=== PATIENT | female | born 1990 | race Caucasian/White ===

== ENCOUNTER 2020-06-25 14:19 | Inpatient (IN) | payer OTHER ==
[~2020-06-25 14:19] MED LIST: KEFLEX250 MG PO
[2020-06-25 14:55] LABS: HCT 35.1 % (37.0-47.0); HGB 11.2 g/dl (12.5-16.0); MCH 27.8 pg (25.0-31.0); MCHC 31.9 g/dL (32.0-36.0); MCV 87.1 fL (78.0-100.0); MPV 10.9 fL (6.0-9.5); RBC 4.03 M/uL (4.20-5.40); RDW 12.6 % (11.5-14.0); WBC 13.7 K/uL (4.0-10.5)
[2020-06-25 15:25] LABS: ALBUMIN 2.6 g/dL (3.4-5.0); BILIRUBIN - TOTAL 0.2 mg/dL (0.2-1.0); BUN/CREAT RATIO (CALC) 15.4 RATIO; CREATININE 0.52 mg/dL (0.51-0.95); GLOBULIN (CALCULATION) 3.8 g/dL; POTASSIUM 4.2 mmol/L (3.5-5.1); TOTAL PROTEIN 6.4 g/dL (6.4-8.2); URIC ACID 4.4 mg/dL (2.6-6.2)
[2020-06-25 15:38] LABS: URINE CREATININE 45.43 mg/dL (29.00-226.00); URINE TOTAL PROTEIN-RANDOM <6.0 mg/dL (<11.9)
[2020-06-27 05:42] LABS: HGB 9.5 g/dl (12.5-16.0); MCHC 31.7 g/dL (32.0-36.0); MCV 88.5 fL (78.0-100.0); MPV 10.9 fL (6.0-9.5); RBC 3.39 M/uL (4.20-5.40); RDW 12.6 % (11.5-14.0); WBC 16.8 K/uL (4.0-10.5)
== END 2020-06-28 11:12 | disposition home or self-care (01) | DRG 806 ==
LOC: FOD 14:19 → FOB 14:31 → FOD 14:59 → FOB 22:22
PROVIDERS: ADMIT Obstetrics & Gynecology
PROC: 10E0XZZ Delivery of Products of Conception, External Approach (ICD-10-PCS; principal; 2020-06-25)
PROC: 0KQM0ZZ Repair Perineum Muscle, Open Approach (ICD-10-PCS; 2020-06-25)
PROC: 10907ZC Drainage of Amniotic Fluid, Therapeutic from Products of Conception, Via Natural or Artificial Opening (ICD-10-PCS; 2020-06-25)
PROC: 3E0234Z Introduction of Serum, Toxoid and Vaccine into Muscle, Percutaneous Approach (ICD-10-PCS; 2020-06-25)
DX: O13.3 Gestational [pregnancy-induced] hypertension without significant proteinuria, third trimester (principal); N13.30 Unspecified hydronephrosis; Z37.0 Single live birth; D62 Acute posthemorrhagic anemia; Z3A.37 37 weeks gestation of pregnancy; O62.2 Other uterine inertia; O99.891 Other specified diseases and conditions complicating pregnancy; K58.2 Mixed irritable bowel syndrome; O99.613 Diseases of the digestive system complicating pregnancy, third trimester; O90.81 Anemia of the puerperium; O70.1 Second degree perineal laceration during delivery
CPT/HCPCS: 36415; 80053; 82570; 83615; 84156; 84550; 85461; 86850; 86900; 86901; J2405; J2790; J7120; U0002

== ENCOUNTER 2020-08-22 12:00 | Emergency (ER) | payer OTHER ==
[2020-08-22 13:27] LABS: BILIRUBIN NEGATIVE (NEGATIVE); BLOOD NEGATIVE Ery/uL (NEGATIVE); CLARITY CLEAR (CLEAR); COLOR YELLOW (YELLOW); GLUCOSE (U) NORMAL (NORMAL); LEUKOCYTES TRACE Leu/uL (NEGATIVE); NITRITE NEGATIVE (NEGATIVE); PROTEIN NEGATIVE (NEGATIVE); UROBILINOGEN 0.2 mg/dL (0.2-1.0)
[2020-08-22 13:42] LABS: BACTERIA TRACE
[2020-08-22] MEDS ORDERED: BACLOFEN 10MG T10 MG PO (14:17)
[2020-08-22] MEDS ORDERED: NAPROXEN500 MG PO (14:17)
== END 2020-08-22 14:55 | disposition home or self-care (01) ==
LOC: FER 12:00
PROVIDERS: Nurse Practitioner Family
DX: S39.012A Strain of muscle, fascia and tendon of lower back, initial encounter (principal); X58.XXXA Exposure to other specified factors, initial encounter
CPT/HCPCS: 72100; 81001; 87088; 96372; J1100; J1885

== ENCOUNTER 2020-08-24 10:33 | Emergency (ER) | payer OTHER ==
[~2020-08-24 10:33] MED LIST changes: +BACLOFEN 10MG T10 MG PO; +NAPROXEN500 MG PO
== END 2020-08-24 11:18 | disposition home or self-care (01) ==
LOC: FER 10:33
DX: T81.31XA Disruption of external operation (surgical) wound, not elsewhere classified, initial encounter (principal); Y83.8 Other surgical procedures as the cause of abnormal reaction of the patient, or of later complication, without mention of misadventure at the time of the procedure
CPT/HCPCS: 99283

== ENCOUNTER 2020-09-02 20:55 | Emergency (ER) | payer OTHER ==
[2020-09-02 22:15] LABS: BASOPHIL 0.3 % (0-2); EOSINOPHIL 0.8 % (0-5); HCT 36.9 % (37.0-47.0); HGB 12.1 g/dl (12.5-16.0); MCH 27.9 pg (25.0-31.0); MCHC 32.8 g/dL (32.0-36.0); MCV 85.2 fL (78.0-100.0); MONOCYTE 7.6 % (0-12); MPV 10.7 fL (6.0-9.5); NRBC 0; PLT 229 K/uL (150-400); RBC 4.33 M/uL (4.20-5.40); RDW 12.5 % (11.5-14.0); WBC 9.3 K/uL (4.0-10.5)
[2020-09-02 22:27] LABS: BILIRUBIN NEGATIVE (NEGATIVE); BLOOD NEGATIVE Ery/uL (NEGATIVE); CLARITY CLEAR (CLEAR); COLOR YELLOW (YELLOW); GLUCOSE (U) NORMAL (NORMAL); LEUKOCYTES NEGATIVE Leu/uL (NEGATIVE); NITRITE NEGATIVE (NEGATIVE); PROTEIN NEGATIVE (NEGATIVE); UROBILINOGEN 0.2 mg/dL (0.2-1.0)
[2020-09-02 22:33] LABS: ALBUMIN 3.6 g/dL (3.4-5.0); BILIRUBIN - TOTAL 0.2 mg/dL (0.2-1.0); BUN/CREAT RATIO (CALC) 19.7 RATIO; CREATININE 0.71 mg/dL (0.51-0.95); POTASSIUM 4.2 mmol/L (3.5-5.1); TOTAL PROTEIN 6.6 g/dL (6.4-8.2)
[2020-09-02 22:54] LABS: IRON % SATURATION 6.6 %SAT (20-50)
[2020-09-02] MEDS ORDERED: FEOSOL325 MG PO (23:00)
== END 2020-09-02 23:20 | disposition home or self-care (01) ==
LOC: FER 20:55
PROVIDERS: Emergency Medicine; Nurse Practitioner Family
DX: E61.1 Iron deficiency (principal); R06.02 Shortness of breath; M79.10 Myalgia, unspecified site; I10 Essential (primary) hypertension
CPT/HCPCS: 36415; 71045; 80053; 81003; 83540; 83550; 83880; 84484; 85025; 85379; 93005

== ENCOUNTER 2021-07-19 19:30 | Emergency (ER) | payer OTHER ==
[~2021-07-19 19:30] MED LIST changes: +FEOSOL325 MG PO
[2021-07-19 19:58] LABS: BASOPHIL 0.3 % (0-2); EOSINOPHIL 0.3 % (0-5); HCT 39.7 % (37.0-47.0); HGB 13.4 g/dl (12.5-16.0); LYMPHOCYTE 29.4 % (15-48); MCH 29.5 pg (25.0-31.0); MCHC 33.8 g/dL (32.0-36.0); MCV 87.4 fL (78.0-100.0); MONOCYTE 6.3 % (0-12); NEUTROPHIL 63.4 % (41-80); NRBC 0; PLT 225 K/uL (150-400); RBC 4.54 M/uL (4.20-5.40); RDW 11.8 % (11.5-14.0)
[2021-07-19 20:08] LABS: INR 1.19 (0.9-1.2); PROTHROMBIN TIME 14.5 SECONDS (11.8-13.4); PTT 31.4 SECONDS (24.4-34.7)
[2021-07-19 20:18] LABS: ALBUMIN 4.4 g/dL (3.4-5.0); ALKALINE PHOSHATASE 53 U/L (46-116); ALT 17 U/L (14-59); AST 12 U/L (15-37); BILIRUBIN - TOTAL 0.6 mg/dL (0.2-1.0); BUN 8 mg/dL (7-18); BUN/CREAT RATIO (CALC) 12.9 RATIO; CHLORIDE 104 mmol/L (98-107); CO2 (BICARBONATE) 26 mmol/L (21-32); CREATININE 0.62 mg/dL (0.51-0.95); GLOBULIN (CALCULATION) 3.2 g/dL; GLUCOSE 97 mg/dL (74-106); POTASSIUM 3.9 mmol/L (3.5-5.1); TOTAL PROTEIN 7.6 g/dL (6.4-8.2)
== END 2021-07-19 22:05 | disposition home or self-care (01) ==
LOC: FER 19:30
PROVIDERS: Emergency Medicine
DX: R07.9 Chest pain, unspecified (principal); R42 Dizziness and giddiness; R51.9 Headache, unspecified; R06.02 Shortness of breath; I10 Essential (primary) hypertension; Z79.899 Other long term (current) drug therapy; Z20.822 Contact with and (suspected) exposure to COVID-19
CPT/HCPCS: 36415; 71045; 80053; 84484; 85025; 85610; 85730; 93005; U0002